=== PATIENT | female | born 1965 | race Caucasian/White ===

== ENCOUNTER 2024-06-18 09:53 | Emergency (ER) | payer OTHER, SELFPAY ==
[2024-06-18 10:44] VITALS: BP 137/95; PULSE 92; RESP 16; TEMP 36.5; O2SAT 97
--- NOTE | 2024-06-18 11:03 | ED_ITS ---
HPI - URI/Sore Throat General Chief Complaint: Upper Respiratory Infection Stated Complaint: COUGH/CONGESTION/EARACHE Time Seen by Provider: 06/18/24 09:55 Source: patient Mode of arrival: ambulatory Limitations: no limitations History of Present Illness HPI Narrative: Patient is a 59-year-old female who presents with productive cough, headache, body aches, feeling like she is wheezing at night for 4 days. Patient had fever of 102.3 on Friday. Denies any sore throat, nausea, vomiting, diarrhea. States symptoms have improved throughout the week except the cough. Patient has been using albuterol inhaler with moderate relief. Requesting a refill. Related Data Home Medications ?Medication ?Instructions ?Recorded ?Confirmed ?Last Taken ?Type aspirin 81 mg tablet,delayed 81 mg PO DAILY 01/12/20 06/18/24 Unknown History release (Madelyn Low Dose Aspirin) ascorbate calcium (vitamin C) 500 500 mg PO DAILY 01/27/20 06/18/24 Unknown H istory mg tablet Allergies Allergy/AdvReac Type Severity Reaction Status Date / Time No Known Allergies Allergy Unknown Verified 06/18/24 10:40 Review of Systems Review of Systems: All systems reviewed & are unremarkable except as noted in HPI and below Constitutional: Constitutional: Reports body ache(s), Denies chills, Denies fatigue, Reports fever(s), Reports headache(s), Denies malaise and Denies weakness Eyes: Eyes: Denies blurry vision, Denies itchy eyes and Denies loss of vision ENT: Denies otalgia, Denies headache(s), Denies nasal congestion, Denies sinus pain and Denies sore throat Cardiovascular: Cardiovascular: Denies chest pain, Denies irregular heart rhythm and Denies dyspnea Respiratory: Respiratory: Reports cough and Denies dyspnea Gastrointestinal: Gastrointestinal: Denies abdominal pain, Denies diarrhea, Denies nausea and Denies vomiting Musculoskeletal: Musculoskeletal: Denies back pain, Denies myalgias and Denies arthralgias Integumentary/Breasts: Skin/Breast: Denies pruritus and Denies rash Neurologic: Denies headache(s), Denies loss of vision and Denies weakness Psychiatric: Psychiatric: Reports no additional psychiatric complaints Endocrine: Endocrine: Denies fatigue Allergic/Immunologic: Allergic/Immunologic: Denies itchy eyes PMFSH Past Medical History Medical History Left otitis externa Dyspepsia Collapsed lung Genital ulcer, female Headache Hyperlipidemia Surgical History Surgical History History of hysterectomy Family History Family History Mother Family history of thyroid disease Father Patient's father is , Onset Age: 66 Asthma Hypertension Heart disease Sibling Asthma Hypertension Grandparent Heart disease Hypertension Diabetes mellitus Asthma Other Family history of muscular dystrophy Social History Social History Smoking status: Never smoker Alcohol intake: current Alcohol use details: socially Substance use: never Substance use type: does not use Lack of Transportation: No Lack of Food: Never True Current Housing: I Have Housing Concerned About Future Housing: No Difficulty Paying Gas/Electric Bills: No Difficulty Paying for Meds: No Currently Unemployed: No Education: High School Diploma/GED Difficulty w/ Childcare or Family Care: No Living arrangements: with family Occupation/Education: occupation Gender identity (if verbalized by the patient): Female Comments At time of signature, agree with nursing past medical, surgical, social and family history. There is no relevant family history pertinent to the presenting complaint. Exam Const: General: cooperative, healthy appearing, comfortable, no acute distress and well nourished Nutritional Appearance: well nourished Orie ntation/consciousness: patient oriented x3 Limitations: no limitations HENMT: Head: normal to inspection, normocephalic and atraumatic Ears: hearing grossly normal bilaterally, external ears normal, TM's normal bilaterally, EAC's normal and no periauricular adenopathy Face/Nose/Sinus: Normal external nose present, Abnormal mucous membranes and turbinates present erythematous bilateral and diffuse, normal facial exam, sinuses nontender and face symmetric Face and sinus: normal facial exam, sinuses nontender and face symmetric Mouth: Yes Normal oral and palatal mucosa present, Yes lip normal, Yes tongue normal, Yes Normal salivary glands and ducts present, Yes oropharynx normal and Yes moist mucous membranes Teeth and gingiva: dentition normal Throat: posterior oropharynx normal, tonsils normal and uvula midline Eyes: General: appearance normal, both eyes and all related structures Alignment and Position: alignment normal and position normal Periorbital: periorbital findings normal Eyelids: eyelids normal Pupils: Equal, round and reactive pupils present Neck: Neck: normal visual inspection, full ROM, no lymphadenopathy and supple Chest: Chest palpation & inspection: normal inspection of the chest and normal palpation of entire chest wall Resp: Effort & Inspection: normal respiratory effort, able to speak in complete sentences and Actively coughing dry Auscultation: clear to auscultation bilaterally, no crackles, no rales, no rhonchi and no wheezes Cardio: Rate: regular rate Rhythm: regular rhythm Heart sounds: S1 normal heart sound present and S2 normal heart sound present GI: Inspection: normal to inspection Skin: General skin exam: normal color and no rashes or lesions noted Neuro: General: patient oriented x3 and moves all extremities Cranial nerves: Yes Equal, round and reactive pupils present Speech: normal speech Gait exam (Neuro): Normal gait present Extrem: General: normal to inspection, full ROM and no edema Psych: Appearance: grossly normal and well kempt Mental Status: mental status grossly normal Speech and movement: Normal speech and movement present Affect: normal affect Attitude: cooperative Thought process: Normal thought process present Course Course Emergency Course: Discharge instructions reviewed with patient, as well as provided in writing p er nursing staff. The instructions also include specific and strict return/GO TO THE ER as well as f/u information. All questions have been answered, and the patient deny any further questions with discharge and discharge plan. Portions of this record may have been created with voice recognition software Level of Care: Express Care Visit Vital Signs Vital signs: Vital Signs Temperature 36.5 C 06/18/24 10:44 Pulse Rate 92 06/18/24 10:44 Respiratory Rate 16 06/18/24 10:44 Blood Pressure 137/95 H 06/18/24 10:44 Pulse Oximetry 97 06/18/24 10:44 Temperature 36.5 C 06/18/24 10:44 Pulse Rate 92 06/18/24 10:44 Respiratory Rate 16 06/18/24 10:44 Blood Pressure 137/95 H 06/18/24 10:44 Pulse Oximetry 97 06/18/24 10:44 Reviewed MDM - URI/Sore Throat MDM Narrative Medical decision making narrative: Pt well hydrated appearing, in no respiratory distress, hemodynamically stable. Recommend supportive care. The patient is stable at time of discharge the clinical impression was discussed and the patient was given the opportunity to ask questions, which were addressed as completely as possible given the information available at present. Anticipatory guidance and return to care precautions were discussed and the importance of primary care follow-up was stressed and encouraged. The patient voiced understanding of the plan, indications to return, and the need for follow-up. Differential diagnosis considered: Turcios virus, strep pharyngitis, allergic r hinitis, upper respiratory tract infection, sinusitis, rhinosinusitis, nasopharyngitis. viral pharyngitis, otitis media, otitis externa, otitis effusion, foreign body, cerumen impaction, viral syndrome, and influenza.? Exam findings show no acute concerns or changes; patient is non-toxic appearing and is in no distress.? Patient is appropriate for outpatient treatment and follow- up.? Medical Records Attestation: I reviewed the patient's medical records. Lab Data Attestation: I reviewed the patient's lab results. Discharge Plan Discharge Clinical Impression: Upper respiratory infection Qualifiers: URI type: unspecified viral URI Qualified Code(s): J06.9 - Acute upper respiratory infection, unspecified Patient Disposition: Home, Self-Care Condition: Stable Instructions: Antibiotic Form Additional Instructions: Your rapid strep swab was negative today at [facility]. A throat culture will be sent to the laboratory for further testing. If the test is positive, you will receive a phone call within 48 hours and an appropriate antibiotic will be initiated at that time. Your Covid and flu are both negative Your symptoms are likely due to a viral illness, which is not treated with antibiotics. Viral symptoms can be present for up to a few weeks. -Alternate Tylenol and Motrin per package directions for fever or pain. -Antihistamine medication such as Benadryl/Zyrtec at night and Claritin/Thu during the day can help improve symptoms. -Use Flonase twice a day for 5 days then daily to help reduce the inflammation and dry up your sinuses. -You can also use Sudafed behind the pharmacy counter(12 or 24 hour). Be sure to drink plenty of water with these medications at least 8 ounces with every dose and it is important to drink 8 to 10 glasses of water per day. Water is a natural decongestant -Eat and drink things that are easy to swallow, like tea or soup, or popsicles. -Oral rinses such as: Salt water gargles and/or may use topical anesthetic (eg. Chloraseptic spray) or lozenges to relieve dryness or throat pain). -Frequent hand washing or hand automobile assembler is one of the best ways to prevent spread of infection. -Using a vaporizer or humidifier at night will also help thin secretions and help with coughing up phlegm. -Follow up with primary care provider in 3-5 days if condition is not improving - For new or worsening symptoms go directly to the nearest ER Your blood pressure was elevated above 120/80 today at Urgent Care. This puts you above the threshold for follow up visit with a primary care provider. High blood pressure does not usually cause any symptoms, however it may lead to kidney failure, stroke, heart disease just to name a few if untreated . Many people are anxious when seeing a provider or nurse. As a result, you are not diagnosed with hypertension at this time unless your blood pressure is persistently high at two office visits at least one week apart. Some things that can help lower blood pressure are lifestyle modifications, such as light exercise, decreased salt in diet, and weight loss. It is important to follow up with a PCP about this within 1 week. Patient Language: Romanian Prescriptions: New (DME) Aerochamber MV Spacer See Rx Instructions .Route Qty: 1 0RF Rx Instructions: As directed benzonatate 100 mg capsule 100 mg PO BID PRN (Reason: cough) Qty: 14 0RF albuterol sulfate 90 mcg/actuation HFA aerosol inhaler 2 puff inhalation QID PRN (Reason: shortness of breath or wheezing) Qty: 6.7 0RF No Action ascorbate calcium (vitamin C) 500 mg tablet 500 mg PO DAILY aspirin [Madelyn Low Dose Aspirin] 81 mg tablet,delayed release (DR/EC) 81 mg PO DAILY albuterol sulfate [Ventolin HFA] 90 mcg/actuation HFA aerosol inhaler 2 puff inhalation Q4H PRN (Reason: shortness of breath or wheezing) Qty: 6.7 0RF fenofibrate nanocrystallized 145 mg tablet 145 mg PO DAILY Qty: 90 0RF rosuvastatin 40 mg tablet 40 mg PO DAILY Qty: 90 0RF pantoprazole 40 mg tablet,delayed release (DR/EC) 40 mg PO QAM PRN (Reason: GERD) Qty: 90 0RF lisinopril 20 mg tablet 20 mg PO DAILY Qty: 90 0RF Follow-up/Referrals: Criss Samaniego PA-C [Primary Care Provider] - 3 Days Stand Alone Forms: Work/School Release IP Time of Disposition: 11:20
[2024-06-18 11:05] LABS: EDCOVIDSCREEN Negative (Negative); EDINFLUASCREEN Negative (Negative); EDINFLUBSCREEN Negative (Negative)
== END 2024-06-18 11:24 | disposition home or self-care (01) ==
PROVIDERS: Emergency Provider Nurse Practitioner Family; PCP Physician Assistant Medical
DX: J06.9 Acute upper respiratory infection, unspecified (principal); Z20.822 Contact with and (suspected) exposure to COVID-19; E78.5 Hyperlipidemia, unspecified
CPT/HCPCS: 87426; 87804; 99213; G0463

== ENCOUNTER 2025-03-08 00:49 | Day surgery (SDC) | payer OTHER, SELFPAY ==
[2025-02-28 09:07] VITALS: BMI 35.9
[2025-03-08 08:13] VITALS: BP 123/93; PULSE 104; RESP 18; TEMP 36.5; O2SAT 97
[2025-03-08] MEDS: LACTATED RINGERS 1,000 ML 150 ML IV CONT (08:24)
--- NOTE | 2025-03-08 08:41 | WPDANESEPPF ---
Anes - Initial Pre Proc Eval Procedure: Operation Date: 03/08/25 09:00 Proposed Procedures p EGD & Screening Colonoscopy - Renny Oconnor MD Date/Time: 03/08/25 08:41 Surgeon: Renny Oconnor MD Pre Op Diagnosis: Encounter for screening for malignant neoplasm of Patient Data Age: 60 Gender: F Height: 1.63 m Weight: 102 kg Last Vital Signs Temp 36.5 C 03/08/25 08:13 Pulse 104 H 03/08/25 08:13 Resp 18 03/08/25 08:13 BP 123/93 H 03/08/25 08:13 Pulse Ox 97 03/08/25 08:13 O2 Del Method Room Air 03/08/25 08:13 Allergies Allergy/AdvReac Type Severity Reaction Status Date / Time No Known Allergies Allergy Unknown Verified 03/08/25 08:11 Home Medications ?Medication ?Instructions ?Recorded ?Confirmed ?Type aspirin 81 mg tablet,delayed 81 mg PO DAILY 01/12/20 02/28/25 History release (Madelyn Low Dose Aspirin) ascorbate calcium (vitamin C) 500 500 mg PO DAILY 01/27/20 02/28/25 History mg tablet albuterol sulfate 90 mcg/actuation 2 puff inhalation Q4H PRN 12/20/21 02/28/25 Rx aerosol inhaler (Ventolin HFA) shortness of breath or wheezing #6.7 grams inhalational spacing device #1 ea 06/18/24 12/29/24 Rx (Aerochamber MV spacer) albuterol sulfate 90 mcg/actuation 2 puff inhalation QID PRN 08/25/24 12/29/24 Rx aerosol inhaler shortness of breath or wheezing #6.7 grams benzonatate 200 mg capsule 200 mg PO BID PRN cough #30 caps 10/13/24 02/28/25 Rx valacyclovir 1 gram tablet 1,000 mg PO Q12H PRN cold sore #30 10/13/24 02/28/25 Rx tabs fenofibrate nanocrystallized 145 145 mg PO DAILY #90 tabs 12/29/24 02/28/25 Rx mg tablet lisinopril 20 mg tablet 20 mg PO DAILY #90 tabs 12/29/24 02/28/25 Rx pantoprazole 20 mg tablet,delayed 20 mg PO QAM PRN GERD #90 tabs 12/29/24 02/28/25 Rx release rosuvastatin 40 mg tablet 40 mg PO DAILY #90 tabs 12/29/24 02/28/25 Rx wheat dextrin 5 gram/7.4 gram oral See Rx Instructions PO .QD #248 12/29/24 02/28/25 Rx powder (Benefiber Healthy Shape) grams cholecalciferol (vitamin D3) 50 50 mcg PO DAILY #90 caps 01/03/25 02/28/25 Rx mcg (2,000 unit) capsule mecobalamin (vitamin B12) 500 mcg 500 mcg PO DAILY #90 tabs 01/03/25 02/28/25 Rx chewable tablet Patient hx anesthesia problems: none Family hx anesthesia problems: none Results Review: All pre-operative results and documents have been reviewed as part of the pre-operative evaluation. [facility] Past Medical History Medical History Constipation Vitamin B12 deficiency Hypertriglyceridemia History of ulcer disease GERD (gastroesophageal reflux disease) Left otitis externa Dyspepsia Collapsed lung Genital ulcer, female Headache Hyperlipidemia Surgical History Surgical History History of hysterectomy Family History Family History Mother Family history of thyroid disease Father Patient's father is , Onset Age: 66 Asthma Hypertension Heart disease Sibling Asthma Hypertension Grandparent Heart disease Hypertension Diabetes mellitus Asthma Other Family history of muscular dystrophy Social History Social History Social History: 08/23/24 very confident with medical forms Smoking status: Never smoker Alcohol intake: current Alcohol use details: socially Substance use: never Substance use type: does not use Lack of Transportation: No Lack of Food: Never True Current Housing: I Have Housing Concerned About Future Housing: No Difficulty Paying Gas/Electric Bills: No Difficulty Paying for Meds: No Currently Unemployed: No Education: High School Diploma/GED Difficulty w/ Childcare or Family Care: No Living arrangements: with family Occupation/Education: occupation Gender identity (if verbalized by the patient): Female Spiritual care concerns: No Anes - Eval Final PreProcedure Day of Procedure 03/08/25 08:41 Patient weight: obese Heart: regular rate and rhythm Lungs: clear to auscultation Airway: Mallampati scale class II Neurological: alert and oriented Last oral intake: >/= 8 hours ASA classification: III Emergent: no Anesthetic plan: proceed Anesthesia type and monitoring: general GIVS and standard monitoring Results Review: All pre-operative results and documents have been reviewed as part of the pre-operative evaluation. Informed Consent: The patient's anesthetic plan and its attendant risks and benefits were discussed with the patient/family/POA. Questions were solicited and answers provided to the satisfaction of the patient/family/POA.
--- NOTE | 2025-03-08 08:57 | PM.HPGS ---
History of Present Illness History of Present Illness Consent: Risks, benefits, and alternatives have been discussed and questions answered. Patient agrees to proceed with procedure. Chief complaint: Encounter for screening for malignant neoplasm of Narrative: Nathalia Hernandez is a 60 year old female here for first egd and colonoscopy, h/o gerd on ppi Review of Systems Review of Systems: All systems reviewed & are unremarkable except as noted in HPI and below PMFSH Past Medical History Medical History (Updated 03/08/25 @ 08:58 by Renny Oconnor MD) GERD (gastroesophageal reflux disease) Constipation Vitamin B12 deficiency Hypertriglyceridemia History of ulcer disease Left otitis externa Dyspepsia Collapsed lung Genital ulcer, female Headache Hyperlipidemia Surgical History Surgical History History of hysterectomy Family History Family History Mother Family history of thyroid disease Father Patient's father is , Onset Age: 66 Asthma Hypertension Heart disease Sibling Asthma Hypertension Grandparent Heart disease Hypertension Diabetes mellitus Asthma Other Family history of muscular dystrophy Social History Social History Social History: 08/23/24 very confident with medical forms Smoking status: Never smoker Alcohol intake: current Alcohol use details: socially Substance use: never Substance use type: does not use Lack of Transportation: No Lack of Food: Never True Current Housing: I Have Housing Concerned About Future Housing: No Difficulty Paying Gas/Electric Bills: No Difficulty Paying for Meds: No Currently Unemployed: No Education: High School Diploma/GED Difficulty w/ Childcare or Family Care: No Living arrangements: with family Occupation/Education: occupation Gender identity (if verbalized by the patient): Female Spiritual care concerns: No Meds Home Medications and Allergies Home Medications ?Medication ?Instructions ?Recorded ?Confirmed ?Type aspirin 81 mg tablet,delayed 81 mg PO DAILY 01/12/20 02/28/25 History release (Madelyn Low Dose Aspirin) ascorbate calcium (vitamin C) 500 500 mg PO DAILY 01/27/20 02/28/25 History mg tablet albuterol sulfate 90 mcg/actuation 2 puff inhalation Q4H PRN 12/20/21 02/28/25 Rx aerosol inhaler (Ventolin HFA) shortness of breath or wheezing #6.7 grams inhalational spacing device #1 ea 06/18/24 12/29/24 Rx (Aerochamber MV spacer) albuterol sulfate 90 mcg/actuation 2 puff inhalation QID PRN 08/25/24 12/29/24 Rx aerosol inhaler shortness of breath or wheezing #6.7 grams benzonatate 200 mg capsule 200 mg PO BID PRN cough #30 caps 10/13/24 02/28/25 Rx valacyclovir 1 gram tablet 1,000 mg PO Q12H PRN cold sore #30 10/13/24 02/28/25 Rx tabs fenofibrate nanocrystallized 145 145 mg PO DAILY #90 tabs 12/29/24 02/28/25 Rx mg tablet lisinopril 20 mg tablet 20 mg PO DAILY #90 tabs 12/29/24 02/28/25 Rx pantoprazole 20 mg tablet,delayed 20 mg PO QAM PRN GERD #90 tabs 12/29/24 02/28/25 Rx release rosuvastatin 40 mg tablet 40 mg PO DAILY #90 tabs 12/29/24 02/28/25 Rx wheat dextrin 5 gram/7.4 gram oral See Rx Instructions PO .QD #248 12/29/24 02/28/25 Rx powder (Benefiber Healthy Shape) grams cholecalciferol (vitamin D3) 50 50 mcg PO DAILY #90 caps 01/03/25 02/28/25 Rx mcg (2,000 unit) capsule mecobalamin (vitamin B12) 500 mcg 500 mcg PO DAILY #90 tabs 01/03/25 02/28/25 Rx chewable tablet Allergies Allergy/AdvReac Type Severity Reaction Status Date / Time No Known Allergies Allergy Unknown Verified 03/08/25 08:11 Vital Signs Vital Signs - 24 hr 03/08/25 08:13 Temperature 97.7 F Pulse Rate 104 H Respiratory Rate 18 Blood Pressure 123/93 H Pulse Oximetry 97 Oxygen Delivery Room Air Exam Const: General: comfortable and no acute distress HENMT: Face/Nose/Sinus: Normal nares present Eyes: General: appearance normal, both eyes and all related structures Resp: Auscultation: clear to auscultation bilaterally Cardio: Rate: regular rate Rhythm: regular rhythm GI: Inspection: non-distended GI Palp: Yes Soft to palpation Skin: General skin exam: normal color Extrem: General: normal to inspection Psych: Mental Status: mental status grossly normal Assessment and Plan Assessment and plan (1) Screening for colon cancer: Code(s): Z12.11 - Encounter for screening for malignant neoplasm of colon Status: Acute Assessment and Plan: colonoscopy (2) GERD (gastroesophageal reflux disease): Code(s): K21.9 - Gastro-esophageal reflux disease without esophagitis Status: Acute Assessment and Plan: egd
--- NOTE | 2025-03-08 09:06 | S_PTH ---
PATIENT: Nathalia Hernandez LOC: [facility]#:[id number] AGE/SX: 60/F ROOM: RE03/08/[address]: Renny Oconnor MD : 1965 BED: DIS: 03/08/2025 SPEC #: [id number] RECD: 03/08/25 10:03 STATUS: SOPHIA REDanis #: [id number] LOLITA: 03/08/25 09:[address]: Renny Oconnor DEPT: [facility] Surgical RECD BY: Rosario Barrett ENTERED: 03/08/25 10:03 SP TYPE: Surgical OTHR DR: Criss Samaniego PA-C Tissues: A - Gastric Biopsy Procedures: Hematoxylin and Eosin Stain Gross and Microscopic Level 4
--- NOTE | 2025-03-08 09:09 | SUR.OPER ---
EGD: [id number] COLON: Start 908
[2025-03-08 09:22] VITALS: BP 119/85; PULSE 80; RESP 22; O2SAT 99
[2025-03-08 09:32] VITALS: BP 127/83; PULSE 76; RESP 17; O2SAT 97
[2025-03-08 09:42] VITALS: BP 136/87; PULSE 74; RESP 14; O2SAT 99
== END 2025-03-08 09:58 | disposition home or self-care (01) ==
PROVIDERS: PCP Physician Assistant Medical; Referring Provider Physician Assistant Medical; Visit Provider Internal Medicine Gastroenterology
PROC: 0DJ08ZZ Inspection of Upper Intestinal Tract, Via Natural or Artificial Opening Endoscopic (ICD-10-PCS; CPT 45378; principal; 2025-03-08 09:00)
DX: Z12.11 Encounter for screening for malignant neoplasm of colon (principal); K64.8 Other hemorrhoids; K57.30 Diverticulosis of large intestine without perforation or abscess without bleeding; K21.9 Gastro-esophageal reflux disease without esophagitis; K29.70 Gastritis, unspecified, without bleeding; E78.5 Hyperlipidemia, unspecified; E53.8 Deficiency of other specified B group vitamins; E78.1 Pure hyperglyceridemia; E66.9 Obesity, unspecified; Z68.38 Body mass index [BMI] 38.0-38.9, adult; Z79.82 Long term (current) use of aspirin; Z79.51 Long term (current) use of inhaled steroids; Z98.890 Other specified postprocedural states; Z87.11 Personal history of peptic ulcer disease; Z82.49 Family history of ischemic heart disease and other diseases of the circulatory system
CPT/HCPCS: 43239; 45378; 88305; J2003; J2704; J7120